=== PATIENT | male | born 1980 | race Caucasian/White ===

== ENCOUNTER 2019-02-19 21:18 | Emergency (ER) | payer SELFPAY ==
[~2019-02-19 21:18] MED LIST: Iopamidol 370 76% 100 ML VIAL ONE
[2019-02-19 21:44] LABS: #Basophils 0.2 thou/uL (0.0-0.2); #Eosinphils 0.3 thou/uL (0.0-0.7); #Lymphocytes 2.7 thou/uL (1.20-3.40); #Monocytes 1.3 thou/uL (0.11-0.59); %Basophils 1.2 % (0.0-1.0); %Eosinophils 2.1 % (0.0-10.0); %Lymphocytes 18.6 % (21.0-51.0); %Monocytes 8.9 % (0.0-10.0); %Neutrophils 69.1 % (42.0-75.0); Hemoglobin 13.2 g/dL (14.0-18.0); Mean Corpuscular HGB CONC 34.3 g/dL (32.0-36.0); Mean Corpuscular Volume 93.5 fL (78.0-98.0); Mean Platelet Volume 6.3 fL (7.4-10.4); Platelet Count 263 thou/uL (130-400); Red Blood Cell (RBC) Count 4.13 mill/uL (4.70-6.10); White Blood Cell (WBC) Count 14.4 thou/uL (4.8-10.8)
[2019-02-19 22:02] LABS: ALT (SGPT) 23 U/L (8-55); AST (SGOT) 30 U/L (5-34); Albumin 4.3 g/dL (3.5-5.0); Alkaline Phosphatase 57 U/L (40-150); Anion Gap 13 mmol/L (10-20); BUN (Urea Nitrogen) 26 mg/dL (8.9-20.6); Bilirubin, Total 0.3 mg/dL (0.2-1.2); Calc. Creatinine Clearance 0 mL/min (70-130); Calcium 9.7 mg/dL (7.8-10.44); Carbon Dioxide 23 mmol/L (22-29); Chloride 108 mmol/L (98-107); Estimated GFR-MDRD 79; Globulin 2.8 g/dL (2.4-3.5); Glucose 96 mg/dL (70-105); Potassium 4.1 mmol/L (3.5-5.1); Protein, Total 7.1 g/dL (6.0-8.3); Sodium 140 mmol/L (136-145)
--- NOTE | 2019-02-19 22:05 | CT ---
Head CT without contrast 02/19/2019: COMPARISON: none HISTORY: Trauma, fall, pain TECHNIQUE: Axial CT imaging at 5 mm intervals from vertex through skull base without contrast FINDINGS: No intracranial hemorrhage, midline shift, or mass effect. The imaged paranasal sinuses and mastoid air cells are well aerated. No displaced calvarial fracture. IMPRESSION: No acute findings.
--- NOTE | 2019-02-19 22:12 | CT ---
CT of cervical spine 02/19/2019 Indication: Fall, trauma, pain COMPARISON: None FINDINGS: The imaged lung apices demonstrate mild bilateral subpleural emphysematous change. The C1 ring is intact. The occipital condyles, the dens, and the C1-2 articulation appears unremarkable. The craniocervical junction, the atlantoaxial interspace, and the cervicothoracic junction appear int act. Cervical vertebral body height and alignment appears within normal limits. No prevertebral soft tissue swelling. Left paracentral/central disc protrusion suspected at C4-5. No acute fracture or evidence of dislocation is seen. IMPRESSION: No acute fracture or dislocation seen.
--- NOTE | 2019-02-19 22:18 | CT ---
CT of the chest, abdomen, pelvis, thoracic spine, and lumbar spine: 02/19/2019 TECHNIQUE: Axial CT imaging at 5 mm intervals from thoracic inlet through pubic symphysis with IV con trast. Coronal and sagittal reformatted imaging obtained HISTORY: Fall, trauma, pain FINDINGS: There is no lymphadenopathy within the chest. Vascular structures of the chest appear paten t. No pleural, pericardial, or mediastinal fluid. No pneumothorax. The lung parenchyma demonstrates no acute findings. Osseous structures of the chest demonstrate no acute findings. There is no free intraperitoneal air or fluid. The liver, gallbladder, spleen, pancreas, adrenal glands, and kidneys appear unremarkable. Limited as sessment of the bowel demonstrates diverticulosis of the descending colon. Vascular structures of the abdomen and pelvis appear patent. No abdominal or pelvic lymphadenopathy. Osseous structures of the pelvis appear unremarkable. No acute thoracic or lumbar spine fracture IMPRESSION: No acute findings.
--- NOTE | 2019-02-19 22:29 | RAD ---
Frontal and lateral imaging of right tibia/fibula: 02/19/2019 COMPARISON: None HISTORY: Fall, trauma, pain FINDINGS: No acute fracture or evidence of dislocation. IMPRESSION: No acute osseous abnormality.
[2019-02-19] MEDS ORDERED: HYDROcodone/Acetaminophen 5/325 mg Tablet ONE (22:36)
[2019-02-19] MEDS ORDERED: Cyclobenzaprine 10 MG TAB ONE (22:37)
[2019-02-19] MEDS ORDERED: Ketorolac Tromethamine 30 MG/ML VIAL ONE (22:37)
== END 2019-02-19 22:50 | disposition home or self-care (01) ==
LOC: MADERS 21:18
DX: S20.211A Contusion of right front wall of thorax, initial encounter (principal); S60.419A Abrasion of unspecified finger, initial encounter; S80.11XA Contusion of right lower leg, initial encounter; I10 Essential (primary) hypertension; W17.89XA Other fall from one level to another, initial encounter
CPT/HCPCS: 70450; 71260; 72125; 74177; 80053; 85025; 96374; J1885; Q9967